=== PATIENT | male | born 1985 | race Caucasian/White ===

== ENCOUNTER 2016-06-30 13:41 | Emergency (ER) | payer SELFPAY ==
[~2016-06-30 13:41] MED LIST: DICYCLOMINE HCL20 MG PO; FAMOTIDINE PO; NO MEDICATIONS; ZOFRANODT PO
== END 2016-06-30 16:04 | disposition home or self-care (01) ==
LOC: CED 13:41
DX: L23.7 Allergic contact dermatitis due to plants, except food (principal); Z86.73 Personal history of transient ischemic attack (TIA), and cerebral infarction without residual deficits
CPT/HCPCS: 96374; 96375; 99284; J1200; J2930

== ENCOUNTER 2016-07-02 16:11 | Emergency (ER) | payer SELFPAY ==
--- NOTE | ~2016-07-02 | CT114 ---
[facility] A Service of [facility] RADIOLOGY TEXT RESULTS PATIENT: ASHLIE PATTERSON LOCATION: [place] : 85 UNIT #: [id number] AGE: [address]: Turner Waldron MD SEX: M ORDER DR: [id number] [facility] [address] [place], [place] [address] [id number] E MR#: [id number] #: [id number] NAME: ASHLIE PATTERSON : 1985 SEX: M STUDY DATE/TIME: 07/02/2016 18:20 UNIT: [place] ROOM: STUDY DESCRIPTION: CT Soft Tissue Neck W Cont Attending Physician: Turner Waldron M.D. Ordering Physician: Turner Waldron M.D. Primary Care Physician: No Primary Care Physician MEDICAL IMAGING REPORT This report is preliminary unless electronic signature is present CT neck, with IV contrast. HISTORY Diffuse anterior neck swelling for 3 days. Difficulty breathing. Poison rolf exposure to neck and face. TECHNIQUE This CT exam was performed with one or more of the following radiation dose reduction techniques: automatic exposure control, adjustment of mA and/or kV according to patient size, and iterative reconstruction. FINDINGS CT neck with IV contrast demonstrates no mass, adenopathy or fluid collection or abnormal soft tissue enhancement. Several borderline enlarged bilateral anterior cervical nodes are incidentally noted. The parotid and submandibular glands and thyroid gland are unremarkable. No oropharyngeal airway narrowing or tracheal narrowing or displacement. IMPRESSION Negative CT neck with IV contrast. Dictated by... Victoriano Herrera M.D. THIS IS AN ELECTRONICALLY VERIFIED REPORT Victoriano Herrera M.D. at 07/02/2016 10:50 PM [place]/bill TD: 07/02/2016 21:04 JOB #: [id number] [facility] A Service [facility] RADIOLOGY TEXT RESULTS PATIENT: ASHLIE PATTERSON LOCATION: [facility] : 85 UNIT #: [id number] AGE: [address]: Turner Waldron MD SEX: M ORDER DR: MEDICAL IMAGING REPORT Page 1 of 1 COPY
[2016-07-02 18:21] LABS: POC - CREATININE 0.84 mg/dL (0.64-1.27); POC - GFR >60.0 mL/min (>60)
== END 2016-07-02 20:06 | disposition home or self-care (01) ==
LOC: CED 16:11
PROVIDERS: Emergency Medicine
DX: R06.02 Shortness of breath (principal); L25.9 Unspecified contact dermatitis, unspecified cause
CPT/HCPCS: 70491; 82565; 99284; Q9967